=== PATIENT | female | born 1955 | race Caucasian/White ===

== ENCOUNTER → 2023-09-06 12:46 | Outpatient (REF) | payer OTHER, SELFPAY | LOC: HWRAD 12:46 | PROVIDERS: ATTENDING PHYSICIAN Obstetrics & Gynecology; FAMILY PHYSICIAN Student in an Organized Health Care Education/Training Program | DX: Z78.0 Asymptomatic menopausal state (principal); Z12.31 Encounter for screening mammogram for malignant neoplasm of breast | CPT/HCPCS: 77063; 77067; 77080 ==

== ENCOUNTER → 2023-12-14 07:12 | Outpatient (REF) | payer OTHER, SELFPAY | LOC: HWRAD 07:12 | PROVIDERS: ATTENDING PHYSICIAN Student in an Organized Health Care Education/Training Program | DX: I10 Essential (primary) hypertension (principal) | CPT/HCPCS: 76775 ==

== ENCOUNTER 2024-05-13 22:23 | Observation (INO) | payer OTHER, SELFPAY ==
[2024-05-13] VITALS (7 sets, daily range): BP systolic 138–151; BP diastolic 58–84; BMI 24.0; BMI 23.1
[2024-05-13 18:49] LABS: % Basophils 0.4 % (0-2); % Eosinophils 0.8 % (0-6); % Immature Granulocytes 0.3 % (0-0.5); % Lymphocytes 23.5 % (20.5-51.1); % Monocytes 6.4 % (1.7-9.3); % Neutrophils 68.6 % (42.2-75.2); Absolute Eosinophils 0.1 10^3/uL (0-0.7); Absolute Lymphocytes 2.4 10^3/uL (1.2-3.4); Absolute Monocytes 0.7 10^3/uL (0.1-0.6); Absolute Neutrophils 6.9 10^3/uL (1.4-6.5); Hematocrit 37.3 % (37.0-47.0); Hemoglobin 13.5 g/dL (12.0-16.0); Mean Corp Hgb Conc. 36.2 g/dL (33.0-37.0); Mean Corpuscular Hgb 29.7 pg (27.0-31.0); Mean Corpuscular Volume 82.2 fL (81.0-99.0); Mean Platelet Volume 10.1 fL (7.4-10.4); Nucleated Red Blood Cells % 0 %; Platelet Count 240 10^3/uL (130-400); Red Blood Cell Count 4.54 10^6/uL (4.20-5.40); Red Cell Dist. Width 12.6 % (11.5-14.5); White Blood Cell Count 10.1 10^3/uL (4.8-10.8)
--- NOTE | 2024-05-13 18:54 | EDRN ---
Kd QUINTANA in room w/ pt.
--- NOTE | 2024-05-13 18:59 | ED.GENMED ---
History of Present Illness
General
Chief Complaint: Dizziness
Source: patient
Time Seen by Provider: 05/13/24 18:45
History of Present Illness
History of Present Illness:
68yoF with a history of hypertension and vertigo presenting via EMS for evaluation of dizziness. Patient woke up from sleep around 2 AM this morning with dizziness. Dizziness is described as feeling like the room is spinning. Symptoms are worse
with any sort of movement. She also reports associated nausea has been unable to tolerate p.o. intake today due to persistent vomiting. Of note, she has been having right sided posterior neck pain over the past few days. She has a history of
vertigo episodes dating back about 15 years. Her vertigo typically does not last this long and she does not typically have this severe vomiting. The patient is prescribed as needed Valium by her PCP. She took a dose today without relief. She was
unable to ambulate due to her symptoms which prompted EMS call. She denies any paresthesias, weakness, visual symptoms, ear pain, chest pain.
Past History
Past History
ED Past Medical History: Asthma and HTN
ED Past Surgical History: None; Negative Cardiac
Social History
Tobacco: Non-smoker
Alcohol: None
Drug: None
Personal:
Living: with family
Employment: Employed
Family History
Family History: Hypertension and Early CAD
Phy Exam
Physical Exam
Physical Exam:
Sitting in a dark room, keeps eyes closed throughout majority of exam
General Physical Exam
General Presentation: mild distress
General age: appears stated age
General Skin: warm and dry
General Habitus: normal
General Mental: alert
ENT Exam
ENT Exam: TM's normal and neck supple
Eye Exam
Eye Exam: PERRL, EOMI and visual john normal
Cardiovascular Exam
Cardiovascular Exam: regular rate/rhythm
Pulmonary Exam
Pulmonary Exam: lungs clear, no respiratory distress and no crackles
Neurological Exam
Neurological Exam: alert and other (CN 2-12 grossly intact. Negative drift x4. 5/5 strength and gross sensation intact in all extremities. Normal finger to nose and heel to lucia bilaterally. )
[place] Coma Scale
Eye Opening: Spontaneous
Verbal Response: Oriented
Motor Response: Obeys Commands
GCS Total Score: 15
Skin Exam
Skin Exam: normal color and warm/dry
Psychiatric Exam
Psychiatric Exam: normal mood/affect
Course
Orders/Labs/Results
Orders:
Orders
05/13/24 18:33
Electrocardiogram (*1) Urgent
Reason for Study: Chest Pain
Cardiac Monitoring- Treatment ONCE
EKG- Treatment ONCE
IV Insert/Care/Rem.- Treatment PRN
05/13/24 18:41
Complete Blood Count/With Diff Urgent
Comprehensive Metabolic Panel Urgent
Magnesium Urgent
Comment: ADD ON
05/13/24 18:58
CT Head W/o Iv Contrast Urgent
Comment:
Reason For Exam: Dizziness
Cardiac Monitoring- Treatment ONCE
0.9% Sodium Chloride 500 ml [Nss] 500 ml IV BOLUS
Ondansetron Injectable [Zofran] 4 mg IV NOW STA
diazePAM [Valium Injection] 5 mg IV NOW STA
05/13/24 19:07
Add On- LAB Urgent
Tests Added?: magnesium
05/13/24 19:26
Troponin I Urgent
05/13/24 20:35
Ketorolac [Toradol] 15 mg IV NOW STA
Metoclopramide [Reglan] 10 mg IV NOW STA
05/13/24 22:01
Admit/Transfer Patient As Directed
Co-Sign Provider:
Level of Care: Observation services
Assign to:: Telemetry
Physician / Group: Htay
Diagnosis: Vertigo
Reason for Telemetry: CVA/TIA
Date to Stop Telemetry: 05/16/24
Time to Stop Telemetry: 11:00
PRN Pain Medication Management As Directed
May give lesser potent ordered pain med per pt: Yes
preference::
Protocol:: Medication orders for pain may be administered in a
manner that supports deferring to patient preference
when the pt is:
- Requesting an ordered lesser potent pain medication.
Least to most potent pain medications are defined
as: acetaminophen < NSAID < tramadol < opioids
(morphine, oxycodone, hydromorphone).
- Requesting a lesser dose of the same medication IF
ORDERED.
- Requesting a less intrusive route of administration
if both routes are prescribed by the provider (PO <
IV).
05/13/24 22:03
Code Status As Directed
Resuscitation Status: Full Code
05/13/24 22:06
Potassium Chloride 10% Elixir [KCl Elixir] 40 meq PO NOW STA
05/13/24 22:49
0.9% Sodium Chloride 1000 ml [Nss] 1,000 ml IV 80 mls/hr
Acetaminophen [Tylenol/Feverall] 650 mg RECTAL Q4HPRN PRN
Acetaminophen [Tylenol] 650 mg PO Q4HPRN PRN
Meclizine [Antivert] 25 mg PO Q8HPRN PRN
Trimethobenzamide [Tigan] 200 mg IM Q6HPRN PRN
diazePAM [Valium Injection] 5 mg IV Q6HPRN PRN
05/13/24 22:49
Consult Notification Routine
Specialty to Notify: Neurology
NEUROLOGY CONSULT Routine
Consulting Provider: Franklin Keys
Was physician already notified: No
Reason for consult: Vertigo
MA [place] Routine
Comment:
Reason For Exam: vertigo
Recent pill cam endoscopy?: No
MA Neck With Contrast Routine
Comment:
Reason For Exam: vertigo
Recent pill cam endoscopy?: No
MR Brain Without Contrast Routine
Comment:
Reason For Exam: vertigo
Recent pill cam endoscopy?: Yes
Activity As Directed
Activity Level: Out of Bed-Early Mobility
With Assistance
Neurological Checks As Directed
Frequency: q4h
Additional Instructions:: q4h x 24h upon admission to the floor, then qshift & with any change in condition
and mental status
Orthostatic Vital Signs As Directed
Orthostatic VS Frequency: Daily
Patient Education As Directed
Type: Stroke education packet
Comment: provide to patient and family
Pneumatic Compression Sleeves As Directed
Type: Knee high
Vital Signs As Directed
Frequency: Per unit guidelines
Ot Eval And Treat Routine
Pt Eval And Treat Routine
Activity Level: Out of Bed-Early Mobility
DX Deep Vein Thrombosis Video Routine
05/14/24 06:00
Basic Metabolic Panel IN AM
Magnesium IN AM
05/14/24 08:00
Amlodipine [Norvasc] 5 mg PO DAILY
Losartan [Cozaar] 100 mg PO DAILY
05/14/24 22:00
Rosuvastatin Calcium [Crestor] 5 mg PO HS
05/16/24 11:00
DC Protocol for Telemetry ONCE
Abnormal Lab Results
05/13/24
18:41
Absolute Neuts (auto) 6.9 H 10^3/uL
(1.4-6.5)
Absolute Monos (auto) 0.7 H 10^3/uL
(0.1-0.6)
Potassium 3.4 L mmol/L
(3.5-5.1)
Carbon Dioxide 21 L mmol/L
(22-30)
BUN 19 H mg/dl
(7-17)
Glucose 152 H mg/dl
(70-99)
05/13/24 18:41
05/13/24 18:41
Vital Signs
Initial and Last Documented VS:
Initial Vital Signs
Temp Pulse Resp BP Pulse Ox
98.5 F 73 12 151/84 100
05/13/24 18:17 05/13/24 18:17 05/13/24 18:17 05/13/24 18:17 05/13/24 18:17
Last Documented Vital Signs
Temp Pulse Resp BP Pulse Ox
98.5 F 82 10 147/71 96
05/13/24 18:17 05/13/24 22:00 05/13/24 19:15 05/13/24 22:00 05/13/24 21:15
MDM/Problems Addressed
Differential Diagnosis Includes:
68yoF here with dizziness since 2am. Described as feeling the room is spinning. Associated with n/v. Hx of vertigo but this episode is longer and more severe than her prior episodes. VSS. No ataxia or focal deficit on neuro exam. Differential
diagnosis includes but is not limited to: BPPV, Meniere's, labyrinthitis, less likely but consider CVA
Initial ED plan: Check cardiac labs, EKG, and CT head. IV Valium and fluid bolus for symptoms.
*EKG
Interpreted by ED Provider?: Yes
EKG Intrepretation Date: 05/13/24
Heart Rate: 68
Rate: normal
Rhythm: sinus
[place]: normal axis
Interval: other (QTc 495)
QRS Pattern: normal QRS
Ischemia: no ischemia
*Critical Care Note
Total Time (30-74mins, 75-104mins- exclusive of procedures): Not Applicable
Update Note
Update Note:
Labs reveal a mild hypokalemia with a potassium of 3.4, likely 2/2 vomiting. Remainder of labs unremarkable. EKG shows NSR without ischemic changes and troponin WNL. CT head negative for acute findings. Patient reports improvement in symptoms after
receiving medications although patient is still unable to ambulate. Will admit for further evaluation and management.
ED Attending Note
-
Portions of this chart may have been created with voice recognition software.� Occasional wrong word or��sound alike� substitutions may have occurred due to the inherent limitations of voice recognition software.
Discharge Plan
Departure
Patient Disposition: Admit
Date of Disposition: 05/13/24
Time of Disposition: 21:40
Presentation/result/management discussed w/ accepting MD/DO: Hospitalist
Discharge Problem:
Vertigo
Interventions
Interventions:
*Risk Screen - Suicide Last Done: 05/13/24 23:18
*General Assessment Last Done: 05/13/24 18:31
*Neglect/Abuse Screening Last Done: 05/13/24 18:31
ED- Fall Risk Assessment Last Done: 05/13/24 18:31
*ED COVID-19 Vaccine History Last Done: 05/13/24 23:18
*Nursing Disposition Last Done: 05/13/24 22:39
ED- Neurological Assessment Last Done: 05/13/24 18:55
ED Swallowing Screen Last Done: 05/13/24 22:20
Discharge Date and Time
Discharge Date/Time: 05/13/24 22:40
[2024-05-13 19:07] LABS: ALT (SGPT) 32 U/L (0-35); AST (SGOT) 30 U/L (14-36); Albumin 4.6 g/dl (3.5-5.0); Alkaline Phosphatase 89 U/L (38-126); Blood Urea Nitrogen 19 mg/dl (7-17); Calcium 9.5 mg/dl (8.4-10.2); Carbon Dioxide 21 mmol/L (22-30); Chloride 100 mmol/L (98-107); Estimated Creatinine Clearance 62 ml/min; Glucose 152 mg/dl (70-99); Potassium 3.4 mmol/L (3.5-5.1); Sodium 137 mmol/L (135-145); Total Bilirubin 0.6 mg/dl (0.2-1.3); Total Protein 7.3 g/dl (6.3-8.2); eGFR > 60.00
[2024-05-13] MEDS: VALIUM INJECTION 5 MG IV (19:10)
[2024-05-13] MEDS: NSS 500 IV (19:12)
[2024-05-13 19:23] LABS: Magnesium 1.7 mg/dl (1.6-2.3)
[2024-05-13 19:59] LABS: Troponin I < 0.012 ng/ml
[2024-05-13] MEDS: TORADOL 15 MG IV (20:52)
[2024-05-13] MEDS: REGLAN 10 MG IV (20:53)
--- NOTE | 2024-05-13 22:04 | W.PN.UPDATE ---
Update Note
Progress Note Update
This note serves as an addendum to the H&P by microchip specialist RAZA Emely KING
HPI
68F Non smoker HX M�ni�re dz , HTN, recurrent vertigo for 20 yrs presenting via EMS for evaluation of dizziness. P
- abrupt onset of dizziness woke her up from sleep around 2 AM this morning with dizziness.
- described as feeling like the room is spinning.
- worse with any sort of movement.
- associated nausea has been unable to tolerate p.o. intake today due to persistent vomiting.
- right sided posterior neck pain over the past few days.
- HX vertigo episodes dating back about 15 years.
The patient is prescribed as needed Valium by her PCP. She took a dose today without relief.
- unable to ambulate due to her symptoms which prompted EMS call.
- denies any paresthesias, weakness, visual symptoms, ear pain, chest pain.
PMHX as above
FHX : Hypertension and Early CAD
Reviewed VS: unremarkable
PE
Gen: Nontoxic
HEENT: no nystagmus
Neck: NEG carotid bruit bilaterally
Lungs: CTA
Cor: RRR S1 S2
Abdomen: soft benign
CARDIAC NURSE: AAO3 NFND
MS: no edema
Psych: nl mood and affect
Data
K 3.4
CO2 21
BUN 19
nl eGFR
NEG TPNI
EKG:
NORMAL SINUS RHYTHM
PROLONGED QT
ABNORMAL ECG
WHEN COMPARED WITH ECG OF 16-OCT-2020 17:29,
QT HAS LENGTHENED
HCT: No acute intracranial abnormality.
ASSESSMENT & PLAN
Pending Rx reconciliation
Abrupt onset of recurrent vertigo associated with N/V
Associated acute gait dysfunction but Non focal neuro exam
Reports Rt post neck pain but no MCCORMICK
HX M�ni�re dz - f/u with Dr York ( ENT)
HX chronic post neck pain
DDX; Peripheral ( M�ni�re dz , acute viral labyrinthitis, BPPV, carotid dissection) vs. less likely central
- NEG HCT
- IM Tigan PRN
- Urgent CTA of H & N
- Ortho VSS
- H & N MRA , Brain MRI
- Fall precaution
- PT/OT consult
- Neuro consult
Borderline Hypokalemia, hypocarbia due to vomiting and Loss
- KCL PO 40 x1
- IV NS @ 80/H
- f/u BMP in the morning
Essential HTN
- await Rx reconciliation
DVT Px: SCD
Full code
Obs TLM
[2024-05-13] MEDS: KCL ELIXIR 40 MEQ PO (22:13)
--- NOTE | 2024-05-13 22:15 | HPS.HSE ---
Family Physician
-
Family Physician: Honorio Godwin, DO
Chief Complaint
-
Vertigo
History of Present Illness
Patient is a 68 y/o female past medical history of Hypertension, Hyperlipidemia, M�ni�re's Disease who presents with vertigo. Patient reports several similar episode this year, but reports this episode is much worse. She awoke this morning at 2AM
which a spinning sensation. Symptoms are worse with any movement, and associated with nausea/vomiting. She tried taking oral Valium at home without relief. She denies any changes in hearing or tinnitus.
Medical History
Past Medical History
Past Medical History: Reports Other
Additional Past Medical History:
Essential Hypertension
Hyperlipidemia
M�ni�re's Disease
Past Surgical History: Reports None
Social History
Tobacco: Non-smoker
Alcohol: None
Family History
Family History: Not pertinent
Allergies / Home Medications
Allergies reflects when Allergies were last updated in [facility].
Home Medications with original date entered in [facility]
Allergy/Medication List:
Allergies
Allergy/AdvReac Type Severity Reaction Status Date / Time
penicillin V Allergy Pharmacy Unverified 05/13/24 18:17
to Review
Penicillins Allergy Hives Verified 05/13/24 18:17
Home Medications
amlodipine 5 mg tablet 5 mg PO DAILY 10/16/20
hydrochlorothiazide 25 mg tablet 25 mg PO DAILY 05/13/24
losartan 100 mg tablet 100 mg PO DAILY 05/13/24
rosuvastatin 5 mg tablet (Crestor) 5 mg PO HS 05/13/24
Review of Systems
-
A 12 point ROS was completed and negative except as noted: Yes
Constitutional: Denies Fever or Chills
EENT: Reports Other (Right Posterior Neck Pain, patient describes as a 'lump' in the back of her neck)
Respiratory: Denies Cough or Trouble Breathing
Cardiac: Denies Chest Pain or Palpitations
Neurological: Denies Headache, Weakness or Numbness
Physical Exam
Vital Signs
Vital Signs
Temp Pulse Resp BP Pulse Ox
98.5 F 82 10 147/71 96
05/13/24 18:17 05/13/24 22:00 05/13/24 19:15 05/13/24 22:00 05/13/24 21:15
Physical Exam
General: Comfortable and Conversant
HEENT: Anicteric, Moist mucous membranes and PERRLA (No Nystagmus)
Respiratory: Clear and Non Labored Respirations
Cardiac: S1/S2 and Regular Rhythm
GI: Soft and Non Tender
Rectal: Deferred by Provider
Musculoskeletal: No Clubbing, No Cyanosis and No Edema
Neuro: Awake, Alert, Oriented and Nonfocal/grossly intact
Psych: Calm
Laboratory Results
-
05/13/24 18:41
05/13/24 18:41
Laboratory Results
Total Bilirubin 0.6 mg/dl (0.2-1.3) 05/13/24 18:41
AST 30 U/L (14-36) 05/13/24 18:41
ALT 32 U/L (0-35) 05/13/24 18:41
Alkaline Phosphatase 89 U/L (38-126) 05/13/24 18:41
Troponin I < 0.012 ng/ml 05/13/24 19:26
Data Reviewed
-
CT Scan: Report Reviewed by me
Lab Data: Labs Reviewed by me
Impression/Plan
-
Vertigo
-Consult Neurology
-Consult PT/OT
-Check Brain MRI with Head/Neck MRA
-Continue Meclizine and Valium PRN
Hypokalemia, secondary to vomiting and HCTZ
-Replace potassium
-Recheck labs in AM
Essential Hypertension
-Continue losartan and amlodipine
-HCTZ on hold due to hypokalemia
Hyperlipidemia
-Continue Crestor
DVT proph: SCDs
Code Status: Full Code
[2024-05-13] MEDS: NSS 1000 IV (23:10)
[2024-05-14 03:00] VITALS: BP 114/56
[2024-05-14 07:00] VITALS: BP 157/79
[2024-05-14 07:07] LABS: Blood Urea Nitrogen 19 mg/dl (7-17); Calcium 9.1 mg/dl (8.4-10.2); Carbon Dioxide 24 mmol/L (22-30); Chloride 103 mmol/L (98-107); Estimated Creatinine Clearance 48 ml/min; Glucose 112 mg/dl (70-99); Potassium 3.8 mmol/L (3.5-5.1); Sodium 138 mmol/L (135-145); eGFR > 60.00
[2024-05-14] MEDS: COZAAR 100 MG PO (07:50)
[2024-05-14] MEDS: NORVASC 5 MG PO (07:50)
[2024-05-14 08:29] VITALS: BP 149/73; BP 155/66; BP 160/72; PULSE 67; PULSE 69; PULSE 70
--- NOTE | 2024-05-14 08:46 | CON.NEURO ---
Consultation
Order
Date of Consultation: 05/14/24
Requesting Provider:
Reason for Consult:
Subjective/Objective
Subjective Data
Date of Service: May 14, 2024
Objective Data
Vital Signs
Temp Pulse Resp BP Pulse Ox
36.9 C 72 16 157/79 100
05/14/24 03:00 05/14/24 07:50 05/14/24 07:00 05/14/24 07:50 05/14/24 07:00
Lab Results
05/13/24 18:41
05/14/24 06:19
Sodium 138 mmol/L (135-145) 05/14/24 06:19
Potassium 3.8 mmol/L (3.5-5.1) 05/14/24 06:19
BUN 19 mg/dl (7-17) H 05/14/24 06:19
Glucose 112 mg/dl (70-99) H 05/14/24 06:19
Calcium 9.1 mg/dl (8.4-10.2) 05/14/24 06:19
Patient Allergies
penicillin V Allergy (Unverified 05/13/24 18:17)
Pharmacy to Review
Penicillins Allergy (Verified 05/13/24 18:17)
Hives
Medications
-
Active Medications
Generic Name Dose Route Start Last Admin
Trade Name Freq PRN Reason Stop Dose Admin
Acetaminophen 650 mg 05/13/24 22:49
Acetaminophen 650 Mg Rectal Suppository RECTAL 06/10/24 22:48
Q4HPRN PRN
MCCORMICK, mild pain, or temp >100.4F
Acetaminophen 650 mg 05/13/24 22:49
Acetaminophen 325 Mg Tablet PO 06/10/24 22:48
Q4HPRN PRN
MCCORMICK, mild pain, or temp >100.4F
Amlodipine Besylate 5 mg 05/14/24 08:00 05/14/24 07:50
Amlodipine 5 Mg Tablet PO 06/11/24 07:59 5 mg
DAILY CHELSEY Administration
Diazepam 5 mg 05/13/24 22:49
Diazepam 10 Mg/2 Ml Inj IV 06/10/24 22:48
Q6HPRN PRN
intractable vertigo
Sodium Chloride 1,000 mls @ 80 mls/hr 05/13/24 22:49 05/13/24 23:10
Nss IV 1,000 mls
.[id number] CHELSEY Administration
Losartan Potassium 100 mg 05/14/24 08:00 05/14/24 07:50
Losartan 100 Mg Tablet PO 06/11/24 07:59 100 mg
DAILY CHELSEY Administration
Meclizine HCl 25 mg 05/13/24 22:49
Meclizine 25 Mg Tablet PO 06/10/24 22:48
Q8HPRN PRN
vertigo
Rosuvastatin Calcium 5 mg 05/14/24 22:00
Rosuvastatin (Crestor) 5 Mg Tablet PO 06/11/24 21:59
HS CHELSEY
Sodium Chloride 0 flush 05/13/24 23:00
Sodium Chloride 0.9% (Flush) Syringe IV 06/10/24 22:59
PER PROTOCOL CHELSEY
Trimethobenzamide HCl 200 mg 05/13/24 22:49
Trimethobenzamide 200 Mg/2 Ml Vial IM 06/10/24 22:48
Q6HPRN PRN
Nausea
Home Medications
�Medication �Instructions �Recorded
amlodipine 5 mg tablet 5 mg PO DAILY 10/16/20
hydrochlorothiazide 25 mg tablet 25 mg PO DAILY 05/13/24
losartan 100 mg tablet 100 mg PO DAILY 05/13/24
rosuvastatin 5 mg tablet (Crestor) 5 mg PO HS 05/13/24
Past History
Past History
ED Past Medical History: Asthma, HTN and Other (M�ni�re's disease)
ED Past Surgical History: None; Negative Cardiac
Social History
Tobacco: Non-smoker
Alcohol: None
Drug: None
Personal:
Living: with family
Employment: Employed
Family History
Family History: Hypertension and Early CAD
--- NOTE | 2024-05-14 09:05 | W.PN.HOSP.TC ---
Today's Communication/Plan
-
d/c home
Assessment / Plan
Assessment / Plan
Vertigo episode
h/o of meniere's disease
-Symptoms rapidly recovered after symptomatic care
-walking independently without any help
-no associated n/v
-Holding neuro consult and MRI studies with rapid improvement in symptoms
-Continue on meclizine/valium post discharge
-F/u with Dr York in office
Hypokalemia
-secondary to vomiting and HCTZ
-replaced and back to normal
Essential Hypertension
-Continue losartan and amlodipine
-HCTZ on hold due to hypokalemia
Hyperlipidemia
-Continue Crestor
DVT proph: SCDs
Code Status: Full Code
More than 30 minutes spent in discharge including
Final examination of the patient
Summarizing hospital stay
Instructions for continuing care to all relevant caregivers
Preparation of discharge records, prescriptions, and referral forms
Total time spent (in minutes): 38 mins
Anticipated Discharge: Today
Subjective/Interval History
-
Date of Service: May 14, 2024
feeling better
no nausea/vomiting
was having neck pain before coming in, better now
Objective Data
-
Labs:
Laboratory Results
05/14/24
06:19
Sodium 138
Potassium 3.8
Chloride 103
Carbon Dioxide 24
BUN 19 H
Creatinine 1.0
Glucose 112 H
Calcium 9.1
Vital Signs:
Vital Signs
Temp Pulse Resp BP Pulse Ox
98.4 F 72 16 157/79 100
05/14/24 03:00 05/14/24 07:50 05/14/24 07:00 05/14/24 07:50 05/14/24 07:00
I&O
05/13/24 05/14/24 05/15/24
06:59 06:59 06:59
Intake Total 480 / 480
Balance 480 / 480
Review of Systems
-
Respiratory: Reports No Symptoms
Cardiac: Reports No Symptoms
Abdomen/GI: Reports No Symptoms
Physical Exam
-
General: No Apparent Distress and Comfortable
HEENT: Negative Oxygen
Respiratory: Clear to Auscultation
Cardiac: Regular Rhythm and S1/S2; Negative Murmur or Rub
GI: Soft, Nontender and Nondistended
Musculoskeletal: No Edema
Neuro: Awake, Alert, Oriented, No Motor Deficits and Nonfocal/Grossly Intact
Psych: Calm
[2024-05-14 09:28] VITALS: BP 146/79; PULSE 69
--- NOTE | 2024-05-14 15:44 | CM ---
PT dc'd to home indep with daughter prior to IA completed and POSADA reviewed.
--- NOTE | 2024-05-15 16:00 | W.DCSUMMARY ---
Discharge Summary
Discharge Data
Date of Admission: 05/13/24
Date of Discharge: 05/14/24
-
Pending Results: No
Hospital Course
Discharging Physician : Dr Yosvany Petty
Disposition : Home
Primary care physician : Honorio Godwin DO
Principal Discharge diagnosis :
M�ni�re's disease
Nausea vomiting
Hypokalemia
Chronic Discharge diagnosis :
Essential hypertension
Hyperlipidemia
Hospital Course :
Patient is a 68-year-old female with admission past medical history came to ER for having new onset of vertigo-like symptoms associated with nausea and vomiting. Patient has been diagnosed for Meniere's disease and was found to have a flareup of
disease on ER evaluation. Patient was started on symptomatic care with Valium/meclizine. Patient had rapid resolution of symptoms within 24 hours. Patient was able to ambulate around the medical floor without any limitation. Patient was
discharged home at this point with a short course of Valium/meclizine and follow-up with primary ENT in office.
Patient had some hypokalemia with nausea and vomiting with added hydrochlorothiazide use. Patient required potassium replacement.
Important imaging findings :
None
Procedure findings :
None
Discharge Plan
-
Patient Disposition: Home (Routine Discharge)
Discharge Diagnosis/Procedures: Menieres disease, vertigo episode
Condition: Fair
Diet: 2 Gram Sodium
Additional Diets: Refrain from caffeine, MSG, Alcohol use
Activity: As tolerated
Driving Restrictions: No driving for 24 hours
Bathing Restrictions: OK to Shower
Referrals:
Honorio Godwin DO [Family Provider] - in one week
Juan Alberto York MD [Active] -
Prescriptions:
New
meclizine 25 mg Tablet
25 mg PO Q8HPRN PRN (Reason: vertigo) Qty: 30 0RF
diazepam [Valium] 5 mg tablet
5 mg PO BID PRN (Reason: Vertigo) Qty: 10 0RF
ondansetron 4 mg tablet,disintegrating
4 mg PO Q8H 3 Days Qty: 9 0RF
Continued
amlodipine 5 MG tablet
5 mg PO DAILY
hydrochlorothiazide 25 mg Tablet
25 mg PO DAILY
losartan 100 mg Tablet
100 mg PO DAILY
rosuvastatin [Crestor] 5 mg Tablet
5 mg PO HS
Discharge Orders:
Discharge Patient (As Directed); Ordered 05/14/24
Ordered By: Yosvany Petty
Discharge Date and Time
Discharge Date/Time: 05/14/24 09:58
Print Language: SINHALA
== END 2024-05-14 09:58 | disposition home or self-care (01) ==
LOC: 3 WEST ACU 22:23
PROVIDERS: Physician Assistant; Physician Assistant Medical; ADMITTING PHYSICIAN Internal Medicine; ATTENDING PHYSICIAN Hospitalist; EMERGENCY PHYSICIAN Emergency Medicine; FAMILY PHYSICIAN Student in an Organized Health Care Education/Training Program
DX: H81.09 Meniere's disease, unspecified ear (principal); I10 Essential (primary) hypertension; R11.2 Nausea with vomiting, unspecified; M54.2 Cervicalgia; J45.909 Unspecified asthma, uncomplicated; E87.6 Hypokalemia; E78.5 Hyperlipidemia, unspecified; R94.31 Abnormal electrocardiogram [ECG] [EKG]; Z82.49 Family history of ischemic heart disease and other diseases of the circulatory system; Z88.0 Allergy status to penicillin
CPT/HCPCS: 70450; 80048; 80053; 83735; 84484; 85025; 93005; 96361; 96374; 96375; 97163; 97530; 99285; G0378

== ENCOUNTER → 2024-09-14 06:24 | Outpatient (REF) | payer OTHER, SELFPAY | LOC: RAD 06:24 | PROVIDERS: ATTENDING PHYSICIAN Internal Medicine Cardiovascular Disease; FAMILY PHYSICIAN Student in an Organized Health Care Education/Training Program | DX: M79.604 Pain in right leg (principal) | CPT/HCPCS: 93971 ==

== ENCOUNTER → 2024-10-02 08:49 | Outpatient (REF) | payer OTHER, SELFPAY | LOC: HWWDC 08:49 | PROVIDERS: ATTENDING PHYSICIAN Nurse Practitioner Family; FAMILY PHYSICIAN Student in an Organized Health Care Education/Training Program | DX: Z12.31 Encounter for screening mammogram for malignant neoplasm of breast (principal) | CPT/HCPCS: 77063; 77067 ==

== ENCOUNTER → 2025-05-08 14:17 | Outpatient (REF) | payer OTHER, SELFPAY | LOC: WDC 14:17 | PROVIDERS: ATTENDING PHYSICIAN Student in an Organized Health Care Education/Training Program | DX: R92.30 Dense breasts, unspecified (principal) | CPT/HCPCS: 76641 ==